=== PATIENT | female | born 1945 | race African-American/Black ===

== ENCOUNTER 2019-12-20 07:53 | Observation (INO) | payer MEDICARE, OTHER ==
--- NOTE | 2019-12-20 08:51 | RAD ---
CHEST 1 VIEW: HISTORY: Syncope, body aches, diarrhea. COMPARISON: None. FINDINGS: Heart size is normal. The lungs are clear. No confluent pneumonia, overt edema, or pleural effusion . IMPRESSION: No significant acute intrathoracic disease. No evidence for pneumonia. Atherosclerosis of the aorta . POS: [facility]
[2019-12-20 09:27] LABS: #Eosinphils 0.1 thou/uL (0.0-0.7); #Lymphocytes 1.1 thou/uL (1.20-3.40); #Monocytes 0.6 thou/uL (0.11-0.59); #Neutrophils 5.8 thou/uL (1.40-6.50); %Basophils 0.6 % (0.0-1.0); %Eosinophils 0.8 % (0.0-10.0); %Lymphocytes 14.2 % (21.0-51.0); %Monocytes 7.7 % (0.0-10.0); %Neutrophils 76.7 % (42.0-75.0); Mean Corpuscular HGB CONC 33.8 g/dL (32.0-36.0); Mean Corpuscular Hemoglobin 33.1 pg (27.0-31.0); Mean Platelet Volume 8.3 fL (7.4-10.4); Platelet Count 198 thou/uL (130-400); RBC Distribution Width 11.4 % (11.5-14.5); Red Blood Cell (RBC) Count 3.94 mill/uL (4.20-5.40); White Blood Cell (WBC) Count 7.6 thou/uL (4.8-10.8)
[2019-12-20 09:30] LABS: Bacteria/HPF None Seen HPF (None Seen); Bilirubin 1+ (Negative); Blood, Urine Negative (Negative); Clarity Clear (Clear); Glucose, Urine (Dipstick) Normal (Negative); Leukocyte 250 Leu/uL (Negative); Nitrite Negative (Negative); Protein, Urine (Dipstick) 20 mg/dL (Neg-Trace); RBC/HPF 0-3 HPF (0-3); Squamous Epithelial 0-3 HPF (0-3); Urobilinogen 3 mg/dL (Less than 2)
[2019-12-20 09:45] LABS: ALT (SGPT) 151 U/L (8-55); AST (SGOT) 164 U/L (5-34); Albumin 4.1 g/dL (3.4-4.8); Alkaline Phosphatase 199 U/L (40-110); Anion Gap 13 mmol/L (10-20); BUN (Urea Nitrogen) 16 mg/dL (9.8-20.1); Bilirubin, Total 2.1 mg/dL (0.2-1.2); Calc. Creatinine Clearance 0 mL/min (70-130); Calcium 9.9 mg/dL (7.8-10.44); Carbon Dioxide 26 mmol/L (23-31); Chloride 100 mmol/L (98-107); Estimated GFR-MDRD 51; Globulin 5.1 g/dL (2.4-3.5); Glucose 140 mg/dL (83-110); Potassium 3.7 mmol/L (3.5-5.1); Protein, Total 9.2 g/dL (6.0-8.3); Sodium 135 mmol/L (136-145)
--- NOTE | 2019-12-20 10:47 | PDOC.FPRHP ---
- History of Present Illness Chief Complaint: Syncope History of Present Illness: Pt is a 74 yo female with pmh significant for HTN, HLD, bigeminy w/ PVC's who presents for a syncopal episode this morning. She states she woke and had a loose BM. Upon standing she became warm, flushed then found herself on the ground. She did hit her head and knocked a tooth out. She is unsure how long she had been on the ground for or how long she LOC. She denies chest pain, palpitations, incontinence, tongue laceration. She was seen by her PCP last week who started her on amlodipine, statin for elevated BP's. She also had bigeminy on an EKG so PCP wanted an echo. Pt denies hepatitis, alcohol, liver disease, cardiac disease. She has never had a stent, MD, or cath. PCP: [facility] ED Course: Pt evaluated in ED and given 500mL NS bolus - Allergies/Adverse Reactions Allergies Allergy/AdvReac Type Severity Reaction Status Date / Time Sulfa (Sulfonamide Allergy Severe Verified 12/20/19 11:30 Antibiotics) - Home Medications Medication Instructions Recorded Confirmed Type Amlodipine [Norvasc] 5 mg PO DAILY 12/20/19 12/20/19 History Aspirin [Ecotrin] 81 mg PO DAILY 12/20/19 12/20/19 History Atorvastatin Calcium [Lipitor] 40 mg PO QPM 12/20/19 12/20/19 History Losartan/Hydrochlorothiazide 1 each PO DAILY 12/20/19 12/20/19 History [Losartan-Hctz 100-25 mg Tab] Magnesium Oxide [Magnesium] 400 mg PO DAILY 12/20/19 12/20/19 History Multivit-Min/Iron/Folic/Lutein 1 tablet PO DAILY 12/20/19 12/20/19 History [Centrum Silver Women] Potassium Chloride [Klor-Con 10] 10 meq PO DAILY 12/20/19 12/20/19 History - History PMHx: HTN, HLD PSHx: BTL FHx: Denies family history Social: Former tobacco use 1ppd, quit over 30 years ago, denies EtOH or drug abuse PCP: Dr. Sandra Bravo Code Status: Full - Review of Systems General: denies: fever/chills, weight/appetite/sleep changes Eyes: denies: eye pain, vision changes ENT: denies: nasal congestion, rhinorrhea Respiratory: denies: cough, shortness of breath Cardiovascular: denies: chest pain, edema Gastrointestinal: reports: diarrhea. denies: vomiting, abdominal pain Genitourinary: denies: incontinence, dysuria Skin: denies: rashes, lesions Musculoskeletal: reports: pain (chronic arm pain). denies: swelling Neurological: reports: syncope, weakness. denies: seizure Psychological: denies: anxiety, depression - Vital signs BP: 150/57, MAP: 88, Pulse: 41, Resp: 21, Pain: 0, O2 sat: 100 on (Room Air), Temp 98.4, Weight 68kg - Physical Exam Constitutional: NAD, awake, alert and oriented HEENT: PERRLA, EOMI -HEENT: L eyelid droop Neck: FROM, no LAD, no JVD Chest: no-tender to palpation, no lesions -Heart: regularly irregular, no murmurs Lungs: CTAB, no respiratory distress, no wheezing Abdomen: soft, non-tender -Abdomen: no RUQ pain, no suprapubic tenderness Musculoskeletal: normal structure, ROM grossly normal Neurological: no focal deficit, CN II-XII intact Skin: no rash/lesions, capillary refill <2 seconds, no jaundice Heme/Lymphatic: no purpura, no petechia Psychiatric: normal mood and affect, good judgment and insight FMR H&P: Results - Labs Result Diagrams: 12/20/19 09:00 12/20/19 09:00 Lab results: WBC 7.6 thou/uL (4.8-10.8) 12/20/19 09:00 Hgb 13.0 g/dL (12.0-16.0) 12/20/19 09:00 Hct 38.6 % (36.0-47.0) 12/20/19 09:00 MCV 98.0 fL (78.0-98.0) 12/20/19 09:00 Plt Count 198 thou/uL (130-400) 12/20/19 09:00 Neutrophils % 76.7 % (42.0-75.0) H 12/20/19 09:00 Sodium 135 mmol/L (136-145) L 12/20/19 09:00 Potassium 3.7 mmol/L (3.5-5.1) 12/20/19 09:00 Chloride 100 mmol/L (98-107) 12/20/19 09:00 Carbon Dioxide 26 mmol/L (23-31) 12/20/19 09:00 BUN 16 mg/dL (9.8-20.1) 12/20/19 09:00 Creatinine 1.24 mg/dL (0.6-1.1) H 12/20/19 09:00 Glucose 140 mg/dL (83-110) H 12/20/19 09:00 Calcium 9.9 mg/dL (7.8-10.44) 12/20/19 09:00 Total Bilirubin 2.1 mg/dL (0.2-1.2) H 12/20/19 09:00 AST 164 U/L (5-34) H 12/20/19 09:00 ALT 151 U/L (8-55) H 12/20/19 09:00 Alkaline Phosphatase 199 U/L (40-110) H 12/20/19 09:00 Serum Total Protein 9.2 g/dL (6.0-8.3) H 12/20/19 09:00 Albumin 4.1 g/dL (3.4-4.8) 12/20/19 09:00 Urine Ketones Negative mg/dL (Negative) 12/20/19 08:50 Urine Blood Negative (Negative) 12/20/19 08:50 Urine Nitrite Negative (Negative) 12/20/19 08:50 Ur Leukocyte Esterase 250 Shay/uL (Negative) A 12/20/19 08:50 Urine RBC 0-3 HPF (0-3) 12/20/19 08:50 Urine WBC 11-20 HPF (0-3) A 12/20/19 08:50 Ur Squamous Epith Cells 0-3 HPF (0-3) 12/20/19 08:50 Urine Bacteria None Seen HPF (None Seen) 12/20/19 08:50 - EKG Interpretation EKG: Regular rate, frequent PVC's with bigeminy - Radiology Interpretation Chest x-ray Status: image reviewed by me, report reviewed by me Additional comment: No acute changes FMR H&P: A/P - Problem List (1) Transaminitis Current Visit: Yes Status: Acute Code(s): R74.0 - NONSPEC ELEV OF LEVELS OF TRANSAMNS & LACTIC ACID DEHYDRGNSE (2) HLD (hyperlipidemia) Current Visit: Yes Status: Acute Code(s): E78.5 - HYPERLIPIDEMIA, UNSPECIFIED (3) HTN (hypertension) Current Visit: Yes Status: Acute Code(s): I10 - ESSENTIAL (PRIMARY) HYPERTENSION (4) Syncope Current Visit: Yes Status: Acute Code(s): R55 - SYNCOPE AND COLLAPSE (5) Vasovagal response Current Visit: Yes Status: Acute Code(s): R55 - SYNCOPE AND COLLAPSE (6) Bigeminal rhythm Current Visit: Yes Status: Acute Code(s): I49.9 - CARDIAC ARRHYTHMIA, UNSPECIFIED - Plan Pt is a 74 yo female with PMH significant for HLD, HTN, bigeminy w/ PVCs who presents for a syncope and transaminitis: # Syncope Vasovagal episode vs Arrhythmia vs dehydration - admit to tele - start fluids - consider holter monitor - pending echo - trend trops - orthostatics blood pressures # Transminitis - d/c statin therapy - trend CMP - Hep B/C, HIV, RPR pending # HTN - continue home meds # HLD - discontinue statin - RUQ U/S Fluids: LR 120 mls/hr VTE: SCD's Diet: HH Code: Full Dispo: Admit to tele/obs FMR H&P: Upper Level - Pertinent history 74 y/o F PMHx HTN, HLD presents to the ED due to an episode of syncope. She reports she had just woken up and went to the bathroom and was sweating and started having diarrhea. She then stood up to wash and passed out. Reports LOC. She denies hitting her head, she did knock her tooth out. Reports drinking about 2 glasses of water per day. - Pertinent findings Vitals: BP: 150/57, MAP: 88, Pulse: 41, Resp: 21, Pain: 0, O2 sat: 100 on (Room Air), Temp 98.4, Weight 68kg PE: Gen - alert, oriented, NAD HEENT - poor dentition, missing front left tooth from fall, no cuts or lip swelling CV - irregular rhythm, no murmurs Labs: Trop neg x1, Bili 2.1, AST 164, ALT 151, Alk phos 199 CXR: no acute process - Plan Date/Time: 12/20/19 1046 I, Dulce Judd MD, PGY-3, have evaluated this patient and agree with findings/ plan as outlined by international marketing coordinator resident. Pertinent changes/additions are listed here. Vasovagal Syncope Suspect vasovagal 2/2 syncope after BM. Other differential includes orthostatic hypotension and arrythmia. -Monitor on tele -Echo -LR @ 120 -Orthostatic vital signs Bigeminy Pt with EKG showing frequent PVC's in bigeminy pattern. PCP was aware. Do not think it is contributing at this time, but will monitor -Tele -Echo Transaminitis Pt denies EtOH hx, not obese, denies h/o hepatitis, denies RUQ pain -Check RUQ US -Hepatitis panel -HIV, RPR HTN -Resume home meds HLD -Hold statin at this time due to transaminitis, will monitor Dispo: Obs on tele LOS: Less than 48 hours
[2019-12-20 12:46] LABS: Troponin I Less than 0.010 ng/mL (< 0.028)
[2019-12-20] MEDS ORDERED: Ondansetron ODT 4 MG TAB SL PRN (13:23)
[2019-12-20] MEDS ORDERED: HYDROcodone/Acetaminophen 5/325 mg Tablet PO PRN ×2 (13:23)
[2019-12-20] MEDS ORDERED: Ondansetron PF 4 MG/2 ML Vial IVP PRN (13:23)
[2019-12-20] MEDS ORDERED: Sodium Chloride 0.9% 1,000 ML IV SCH (13:23)
[2019-12-20] MEDS ORDERED: Acetaminophen 325 MG TAB PO PRN (13:23)
[2019-12-20 13:36] VITALS: BMI 28.0
[2019-12-20] MEDS: Lactated Ringer's 1,000 ML IV SCH ×2 (14:53→23:31)
[2019-12-20 15:55] LABS: Troponin I Less than 0.010 ng/mL (< 0.028)
[2019-12-20 16:10] LABS: Syphilis Antibody Nonreactive (Nonreactive); Syphilis Antibody Index 0.12 S/CO (<1.00 Non-Reactive)
[2019-12-20 16:11] LABS: HBSAB Concentration 1.39 mIU/mL; HBSAg Index 0.16 S/CO (0-0.99); HIV (1/2) Antibody/Antigen Non-Reactive (NonReactive); HIV 1/2 INDEX 0.13 S/CO (<1.00); Hep B Core Total Ab Non-Reactive (NonReactive); Hep B Core Total Index 0.11 S/CO (0-0.79); Hep B Surf AB Non-Reactive (NonReactive); Hep B Surf Ag Non-Reactive S/CO (NonReactive); Hep C IgG Ab Non-Reactive (NonReactive); Hep C Index 0.26 S/CO (0-0.79)
--- NOTE | 2019-12-20 23:32 | HP ---
I have examined the patient and discussed the case with Dr. Jimmy Beauchamp, and I agree with his assessment and plan. HISTORY OF PRESENT ILLNESS: Briefly, Ms. Keyes is a 74-year-old black female with a long history of hypertension, hyperlipidemia. She also has recently developed bigeminy on her EKG. She was having a bowel movement at home this morning when she arose to sit up. She became warm flushed, and fell to the ground for several seconds. She was able to get a relative come and help her up. She presented to our ER with this syncopal episode for further evaluation. She denied any chest pain or palpitations. PHYSICAL EXAMINATION: VITAL SIGNS: Her blood pressure was 150/60, her pulse rate was 50, respirations 20, room air saturation 100%. She is afebrile. GENERAL: Now, she is awake, alert, no acute distress. EYES, EAR, NOSE, AND THROAT: No erythema or exudate. She has a left eyelid droop, which I believe is chronic. NECK: Supple. CARDIAC: Heart rhythm irregular and rhythm strip shows ventricular bigeminy. LUNGS: Clear without rales or wheezes. ABDOMEN: Soft. No guarding, rebound, or rigidity. EXTREMITIES: Trace edema. NEUROLOGIC: No focal deficits. LABORATORY DATA: CBC; white count is 7600, hemoglobin 13, hematocrit 38.6 with an MCV of 98. Chemistries; sodium 135, potassium 3.7, chloride 100, bicarb 26, BUN 16, creatinine 1.24. She does have also elevations of her transaminases. Her AST is 164, her ALT is 151. She also has an elevated bilirubin of 2.1 and an alkaline phosphatase elevation of 199. Serologies, her RPR is negative. Hep B surface antigen negative. Hep B surface antibody negative. Hep B core antibody negative. Hep C antibody negative. Her HIV is also negative. ASSESSMENT: 1. Syncope. 2. Elevated liver function tests with further testing to come. 3. Bigeminy. PLAN: Continue to evaluate LFTs with right upper quadrant ultrasound. Obtain echocardiogram. Further testing depends on initial results. Job ID: [id number]
[2019-12-21 04:47] LABS: #Eosinphils 0.1 thou/uL (0.0-0.7); #Lymphocytes 2.3 thou/uL (1.20-3.40); #Monocytes 0.8 thou/uL (0.11-0.59); #Neutrophils 2.2 thou/uL (1.40-6.50); %Basophils 0.3 % (0.0-1.0); %Eosinophils 2.2 % (0.0-10.0); %Lymphocytes 41.9 % (21.0-51.0); %Monocytes 14.6 % (0.0-10.0); Mean Corpuscular HGB CONC 33.5 g/dL (32.0-36.0); Mean Corpuscular Hemoglobin 32.9 pg (27.0-31.0); Mean Corpuscular Volume 98.4 fL (78.0-98.0); Platelet Count 164 thou/uL (130-400); RBC Distribution Width 11.5 % (11.5-14.5); Red Blood Cell (RBC) Count 3.34 mill/uL (4.20-5.40); White Blood Cell (WBC) Count 5.4 thou/uL (4.8-10.8)
[2019-12-21 05:14] LABS: ALT (SGPT) 107 U/L (8-55); AST (SGOT) 105 U/L (5-34); Albumin 3.2 g/dL (3.4-4.8); Alkaline Phosphatase 149 U/L (40-110); Anion Gap 13 mmol/L (10-20); BUN (Urea Nitrogen) 11 mg/dL (9.8-20.1); Bilirubin, Total 0.8 mg/dL (0.2-1.2); Calc. Creatinine Clearance 67 mL/min (70-130); Calcium 8.7 mg/dL (7.8-10.44); Carbon Dioxide 22 mmol/L (23-31); Chloride 104 mmol/L (98-107); Estimated GFR-MDRD 85; Glucose 106 mg/dL (83-110); Potassium 3.5 mmol/L (3.5-5.1); Protein, Total 7.2 g/dL (6.0-8.3); Sodium 135 mmol/L (136-145)
--- NOTE | 2019-12-21 06:26 | PDOC.FM ---
- Subjective Subjective: Pt is doing well without any issues. She had no syncopal episodes overnight. She feels good. RUQ u/s was wnl. - Objective Vital Signs & Weight: Vital Signs (12 hours) Temp Pulse Resp BP Pulse Ox 12/20/19 23:10 98.2 F 76 14 137/63 96 12/20/19 19:55 98.1 F 86 16 170/72 H 97 Weight Weight 67.177 kg I&O: 12/19/19 12/20/19 12/21/19 06:59 06:59 06:59 Intake Total 690 Balance 690 Result Diagrams: 12/21/19 04:34 12/21/19 04:34 EKG Reviewed by me: Yes (NSR for 4 hours then converted to bigeminy PVC's) Phys Exam - Physical Examination Constitutional: NAD HEENT: PERRLA, moist MMs Respiratory: no wheezing, clear to auscultation bilateral Regulary, irregular Gastrointestinal: soft, non-tender, positive bowel sounds Musculoskeletal: no edema, pulses present Neurological: non-focal, moves all 4 limbs Psychiatric: normal affect, A&O x 3 Skin: no rash, cap refill <2 seconds Dx/Plan (1) Transaminitis Code(s): R74.0 - NONSPEC ELEV OF LEVELS OF TRANSAMNS & LACTIC ACID DEHYDRGNSE Status: Acute (2) HLD (hyperlipidemia) Code(s): E78.5 - HYPERLIPIDEMIA, UNSPECIFIED Status: Acute (3) HTN (hypertension) Code(s): I10 - ESSENTIAL (PRIMARY) HYPERTENSION Status: Acute (4) Syncope Code(s): R55 - SYNCOPE AND COLLAPSE Status: Acute (5) Vasovagal response Code(s): R55 - SYNCOPE AND COLLAPSE Status: Acute (6) Bigeminal rhythm Code(s): I49.9 - CARDIAC ARRHYTHMIA, UNSPECIFIED Status: Acute - Plan Plan: Pt is a 74 yo female with PMH significant for HLD, HTN, bigeminy w/ PVCs who presents for a syncope and transaminitis: # Syncope Vasovagal episode vs Arrhythmia vs dehydration - admit to tele - pending echo - trop neg x 3 # Transminitis - improving - d/c statin therapy - follow up outpt - trend CMP - Hep B/C, HIV, RPR non-reactive - pending anti smooth muscle, GGT # HTN - continue home meds # HLD - discontinue statin - RUQ U/S wnl # Elevated creatinine - improving - monitor Fluids: LR 120 mls/hr VTE: SCD's Diet: HH Code: Full Dispo: Admit to tele/obs, discharge if echo WNL
[2019-12-21] MEDS: Aspirin 81 mg Enteric Coated Tablet PO SCH (08:02)
[2019-12-21] MEDS: Losartan/Hydrochlorothiazide 100 mg/25 mg Tablet PO SCH (08:02)
[2019-12-21] MEDS: Lactated Ringer's 1,000 ML IV SCH (08:02)
[2019-12-21] MEDS: Amlodipine 5 MG TAB PO SCH (08:03)
[2019-12-21] MEDS: Magnesium Oxide 400 MG TAB PO SCH (08:03)
--- NOTE | 2019-12-21 08:10 | ULT ---
RIGHT UPPER QUADRANT ULTRASOUND: HISTORY: Transaminitis. FINDINGS: The liver appears unremarkable. No focal liver masses. The gallbladder demonstrates no evidence of ga llstones, wall thickening, edema or pericholecystic fluid. The common bile duct is 0.5 cm. The visual ized pancreas and right kidney are unremarkable. IMPRESSION: Unremarkable right upper quadrant ultrasound. POS: [facility]
[2019-12-21] MEDS: Potassium Chloride 10 MEQ TAB PO SCH (10:00)
--- NOTE | 2019-12-21 18:02 | PRG ---
DATE OF SERVICE: 12/21/2019 ADDENDUM: This is an addendum to the note of Dr. Jimmy Beauchamp. Ms. Keyes is sitting in bed quietly, in no distress. We are awaiting the results of her echocardiogram. Her gallbladder ultrasound done this morning was normal. She does have unexplained elevations of her liver enzymes, which I do not believe are related to her use of a statin. Her hepatitis screens are all negative. Again, her right upper quadrant ultrasound does not show any etiology for elevated LFTs. I would suggest some autoimmune studies to include an antismooth muscle antibody, and probable further workup as an outpatient. Job ID: [id number]
[2019-12-22 05:04] LABS: #Eosinphils 0.2 thou/uL (0.0-0.7); #Lymphocytes 2.2 thou/uL (1.20-3.40); #Monocytes 0.8 thou/uL (0.11-0.59); #Neutrophils 2.8 thou/uL (1.40-6.50); %Basophils 0.3 % (0.0-1.0); %Eosinophils 3.1 % (0.0-10.0); %Lymphocytes 36.4 % (21.0-51.0); %Monocytes 13.6 % (0.0-10.0); %Neutrophils 46.6 % (42.0-75.0); Hemoglobin 11.3 g/dL (12.0-16.0); Mean Corpuscular HGB CONC 33.2 g/dL (32.0-36.0); Mean Corpuscular Hemoglobin 32.8 pg (27.0-31.0); Mean Corpuscular Volume 98.9 fL (78.0-98.0); Mean Platelet Volume 8.4 fL (7.4-10.4); Platelet Count 185 thou/uL (130-400); RBC Distribution Width 11.5 % (11.5-14.5); Red Blood Cell (RBC) Count 3.46 mill/uL (4.20-5.40); White Blood Cell (WBC) Count 5.9 thou/uL (4.8-10.8)
[2019-12-22 05:27] LABS: ALT (SGPT) 96 U/L (8-55); AST (SGOT) 80 U/L (5-34); Albumin 3.3 g/dL (3.4-4.8); Alkaline Phosphatase 167 U/L (40-110); Anion Gap 13 mmol/L (10-20); BUN (Urea Nitrogen) 12 mg/dL (9.8-20.1); Bilirubin, Total 0.6 mg/dL (0.2-1.2); Calc. Creatinine Clearance 65 mL/min (70-130); Calcium 9.1 mg/dL (7.8-10.44); Carbon Dioxide 26 mmol/L (23-31); Chloride 102 mmol/L (98-107); Estimated GFR-MDRD 82; Globulin 4.4 g/dL (2.4-3.5); Glucose 100 mg/dL (83-110); Potassium 3.5 mmol/L (3.5-5.1); Protein, Total 7.7 g/dL (6.0-8.3); Sodium 137 mmol/L (136-145)
--- NOTE | 2019-12-22 06:09 | PDOC.FM ---
- Subjective Subjective: pt is feeling well this morning. Says she is hungry. Denies feeling lightheaded. No pain. - Objective MAR Reviewed: Yes Vital Signs & Weight: Vital Signs (12 hours) Temp Pulse Resp BP Pulse Ox 12/21/19 23:45 98.1 F 68 15 145/69 H 99 12/21/19 19:40 98.1 F 80 16 131/63 98 Weight Weight 67.495 kg I&O: 12/20/19 12/21/19 12/22/19 06:59 06:59 06:59 Intake Total 2305 1420 Output Total 750 1450 Balance 1555 -30 Result Diagrams: 12/22/19 04:26 12/22/19 04:26 Phys Exam - Physical Examination Constitutional: NAD Respiratory: no wheezing, clear to auscultation bilateral Cardiovascular: RRR (1/6 murmur) Gastrointestinal: soft, non-tender, no distention Musculoskeletal: no edema Psychiatric: normal affect, A&O x 3 Dx/Plan (1) Bigeminal rhythm Code(s): I49.9 - CARDIAC ARRHYTHMIA, UNSPECIFIED Status: Acute (2) HLD (hyperlipidemia) Code(s): E78.5 - HYPERLIPIDEMIA, UNSPECIFIED Status: Acute (3) HTN (hypertension) Code(s): I10 - ESSENTIAL (PRIMARY) HYPERTENSION Status: Acute (4) Syncope Code(s): R55 - SYNCOPE AND COLLAPSE Status: Acute (5) Transaminitis Code(s): R74.0 - NONSPEC ELEV OF LEVELS OF TRANSAMNS & LACTIC ACID DEHYDRGNSE Status: Acute (6) Vasovagal response Code(s): R55 - SYNCOPE AND COLLAPSE Status: Acute - Plan Plan: Pt is a 74 yo female with PMH significant for HLD, HTN, bigeminy w/ PVCs who presents for a syncope and transaminitis: # Syncope Vasovagal episode vs Arrhythmia vs dehydration - likely vasovagal - overnight tele: bigeminal PVCs - ECHO: EF 45-50, mild increase in LV size and mild LA dilation. Mild-mod MR and AR. - trop neg x 3 # Transminitis - improving - d/c statin therapy - follow up outpt - GGT elevated. - trend CMP - Hep B/C, HIV, RPR non-reactive - pending anti smooth muscle - RUQ u/s neg # HTN - continue home meds # HLD - discontinue statin - RUQ U/S wnl # Elevated creatinine - improving - monitor Fluids: LR 120 mls/hr VTE: SCD's Diet: HH Code: Full Dispo: Admit to tele/obs, likely d/c day. Addendum - Attending - Attending Attestation Date/Time: 12/22/19 2243 I personally evaluated the patient and discussed the management with Dr. Gan I agree with the History, Examination, Assessment and Plan documented above with any addition or exceptions noted below. Patient admitted with syncopal episode showing asymptomatic bigeminy PVCs on monitor. Patient with elevated LFTs under evaluation possible Statin drug related appear improved s/p d/c atorvastatin. Will consult with Cardiology regard any further consideration of cardiac related syncope in light of PVCs. electrolytes and Magnesium ok. Echocardiogram completed as reported above.
[2019-12-22] MEDS: Aspirin 81 mg Enteric Coated Tablet PO SCH (08:33)
[2019-12-22] MEDS: Losartan/Hydrochlorothiazide 100 mg/25 mg Tablet PO SCH (08:33)
[2019-12-22] MEDS: Magnesium Oxide 400 MG TAB PO SCH (08:34)
[2019-12-22] MEDS: Amlodipine 5 MG TAB PO SCH (08:34)
[2019-12-22] MEDS: Potassium Chloride 10 MEQ TAB PO SCH (08:34)
[2019-12-22 13:12] LABS: Prothrombin Time 13.3 SEC (12.0-14.7)
--- NOTE | 2019-12-23 00:49 | CON ---
DATE OF CONSULTATION: HISTORY: May Keyes is a 74-year-old black female, admitted for an episode of syncope. She has longstanding history of hypertension and recently saw her primary doctor. She was found to have blood pressure somewhat poorly controlled and was in ventricular bigeminy. Amlodipine 5 mg was added to losartan/hydrochlorothiazide 100/25. On December 20, she had somewhat watery loose bowel movement and stood up and noticed that she was falling to the ground. However, she states she does not remember hitting the floor. She knocked a tooth out. She was brought to the emergency room for further evaluation. She denies any shortness of breath or chest discomfort. She denies any abdominal pain. PAST MEDICAL HISTORY: Hypertension and hypercholesterolemia. MEDICATIONS: 1. Atorvastatin 40 daily. 2. Amlodipine 5 mg daily. 3. Aspirin 81 daily. 4. Losartan/hydrochlorothiazide 100/25 q.a.m. 5. Magnesium oxide 400 daily. 6. Potassium 10 mEq daily. ALLERGIES: SULFA. OPERATIONS: Tubal ligation. SOCIAL HISTORY: She smoked one pack per day. Stopped 30 years ago. She does not drink. FAMILY HISTORY: Unremarkable. REVIEW OF SYSTEMS: Unremarkable except as noted above. PHYSICAL EXAMINATION: VITAL SIGNS: Blood pressure 135/60, pulse of 92. HEENT: PERRL. NECK: Supple. CHEST: Clear. CARDIAC: S1 and S2 normal without any S3, S4, or murmurs. ABDOMEN: Normal bowel sounds without tenderness or organomegaly. Carotid upstrokes normal without bruits. EXTREMITIES: Revealed no clubbing, cyanosis, or edema. NEUROLOGIC: Grossly intact. SKIN: Warm and dry. LABORATORY DATA: EKG revealed normal sinus rhythm with ventricular bigeminy. Echocardiogram revealed mild left ventricular dysfunction with ejection fraction of 45% to 50%, mild left ventricular enlargement, mild left atrial enlargement, wrwn-ax-tzwldyma mitral regurgitation, svgj-[id number]-rnynedqj aortic regurgitation, mild tricuspid regurgitation. Hemoglobin 11.3, hematocrit 34.2, white count 5900, and platelets 185,000. INR 1.0. Sodium 137, potassium 3.5, chloride 107, carbon dioxide 26, BUN 12, creatinine 0.83. It is of note that AST was 105, ALT 107, and alkaline phosphatase 149. GGT 469. Abdominal ultrasound revealed no evidence of cholelithiasis. IMPRESSION: 1. Syncopal episode. This certainly could have been due to vasovagal response after somewhat watery bowel movement, orthostasis, arrhythmia, etc. 2. Ventricular bigeminy which apparently was first noted within the last week. 3. Hypertension. 4. Mild left ventricular dysfunction with mild left ventricular enlargement. 5. Hypercholesterolemia. RECOMMENDATIONS: With ventricular bigeminy, she will undergo Lexiscan Cardiolite testing to rule out ischemia as a cause of her frequent PVCs. Lipid profile will be obtained. With her mild left ventricular dysfunction and ventricular bigeminy, I would discontinue the amlodipine and instead have her start on carvedilol 6.25 b.i.d. If no significant arrhythmias are found, consideration can be given to discharging her with a 30-day monitor. Job ID: [id number] [facility]ITALZaria
[2019-12-23 04:52] LABS: #Eosinphils 0.1 thou/uL (0.0-0.7); #Lymphocytes 2.9 thou/uL (1.20-3.40); #Monocytes 0.8 thou/uL (0.11-0.59); #Neutrophils 2.9 thou/uL (1.40-6.50); %Basophils 0.4 % (0.0-1.0); %Eosinophils 2.1 % (0.0-10.0); %Lymphocytes 42.8 % (21.0-51.0); %Monocytes 11.2 % (0.0-10.0); %Neutrophils 43.4 % (42.0-75.0); Hemoglobin 12.3 g/dL (12.0-16.0); Mean Corpuscular HGB CONC 31.8 g/dL (32.0-36.0); Mean Corpuscular Hemoglobin 31.3 pg (27.0-31.0); Mean Corpuscular Volume 98.4 fL (78.0-98.0); Mean Platelet Volume 8.7 fL (7.4-10.4); Platelet Count 181 thou/uL (130-400); RBC Distribution Width 11.5 % (11.5-14.5); Red Blood Cell (RBC) Count 3.93 mill/uL (4.20-5.40); White Blood Cell (WBC) Count 6.8 thou/uL (4.8-10.8)
[2019-12-23 05:14] LABS: ALT (SGPT) 76 U/L (8-55); AST (SGOT) 58 U/L (5-34); Albumin 3.4 g/dL (3.4-4.8); Alkaline Phosphatase 173 U/L (40-110); Anion Gap 12 mmol/L (10-20); BUN (Urea Nitrogen) 16 mg/dL (9.8-20.1); Bilirubin, Total 0.5 mg/dL (0.2-1.2); Calc. Creatinine Clearance 57 mL/min (70-130); Calcium 9.2 mg/dL (7.8-10.44); Carbon Dioxide 24 mmol/L (23-31); Cardiac Risk 2.9 (Less than 4.5); Chloride 99 mmol/L (98-107); Cholesterol 174 mg/dl (< 200 Desired); Estimated GFR-MDRD 72; Globulin 4.6 g/dL (2.4-3.5); Glucose 103 mg/dL (83-110); HDL Cholesterol 61 mg/dL (>60 Neg Risk); LDL Cholesterol, Calculated 101 mg/dL; Potassium 3.4 mmol/L (3.5-5.1); Sodium 132 mmol/L (136-145); Triglycerides 61 mg/dL (Less than 150)
--- NOTE | 2019-12-23 05:59 | PDOC.FM ---
- Subjective Subjective: Pt is feeling well this AM. Denies chest pain, SOB. She does not have questions w/ regards to her stress test. Overnight tele showed frequent PVCs ~30 per min and bigeminal PVCs. - Objective MAR Reviewed: Yes Vital Signs & Weight: Vital Signs (12 hours) Temp Pulse Resp BP Pulse Ox 12/23/19 03:18 98.1 F 84 17 149/83 H 98 12/22/19 23:25 98.9 F 88 15 146/68 H 98 12/22/19 19:21 99.2 F 83 16 133/62 97 Weight Weight 66.497 kg I&O: 12/21/19 12/22/19 12/23/19 06:59 06:59 06:59 Intake Total 2305 1710 1200 Output Total 750 2050 1300 Balance 1555 -340 -100 Result Diagrams: 12/23/19 04:31 12/23/19 04:31 Phys Exam - Physical Examination Constitutional: NAD L eyelid ptosis, baseline Respiratory: no wheezing, clear to auscultation bilateral Cardiovascular: RRR, no significant murmur Gastrointestinal: soft Psychiatric: normal affect, A&O x 3 Dx/Plan (1) Bigeminal rhythm Code(s): I49.9 - CARDIAC ARRHYTHMIA, UNSPECIFIED Status: Acute (2) HLD (hyperlipidemia) Code(s): E78.5 - HYPERLIPIDEMIA, UNSPECIFIED Status: Acute (3) HTN (hypertension) Code(s): I10 - ESSENTIAL (PRIMARY) HYPERTENSION Status: Acute (4) Syncope Code(s): R55 - SYNCOPE AND COLLAPSE Status: Acute (5) Transaminitis Code(s): R74.0 - NONSPEC ELEV OF LEVELS OF TRANSAMNS & LACTIC ACID DEHYDRGNSE Status: Acute (6) Vasovagal response Code(s): R55 - SYNCOPE AND COLLAPSE Status: Acute - Plan Plan: Pt is a 74 yo female with PMH significant for HLD, HTN, bigeminy w/ PVCs who presents for a syncope and transaminitis: # Syncope # Bigeminal PVCs, frequent PVCs Vasovagal episode vs Arrhythmia vs dehydration - likely vasovagal, must work up PVCs - overnight tele: bigeminal PVCs, frequent PVCs - ECHO: EF 45-50, mild increase in LV size and mild LA dilation. Mild-mod MR and AR. - trop neg x 3 - Cards consulted, appreciate recs. Amlodipine discontinued, started carvedilol. Held carvedilol for stress test. Will undergo cardiolite stress test today to rule out ischemia as cause of PVCs. May have diet after stress test. # Transminitis - improving # Hypomagnesemia # Hypokalemia - d/c statin therapy - follow up outpt - GGT elevated. - trend CMP. Replete prn. - Hep B/C, HIV, RPR non-reactive - pending anti smooth muscle - RUQ u/s neg # HTN - continue home meds. See above for cardiology recs. # HLD - discontinue statin - RUQ U/S wnl - repeat FLP wnl # Elevated creatinine - resolved - monitor Fluids: SL VTE: SCD's Diet: HH Code: Full Dispo: pending stress test. Addendum - Attending - Attending Attestation Date/Time: 12/23/19 9714 I personally evaluated the patient and discussed the management with Dr. Gan I agree with the History, Examination, Assessment and Plan documented above with any addition or exceptions noted below. Patient for stress testing this AM BP rx changes noted d/c CCB and started coreg yesterday appreciate Cardiology recommendations.
[2019-12-23 06:37] LABS: Magnesium 1.4 mg/dL (1.6-2.6)
[2019-12-23] MEDS ORDERED: Carvedilol 6.25 MG TAB PO SCH (08:00)
[2019-12-23] MEDS ORDERED: Magnesium 2 GM/50 ML 2 GM in Premix Bag 1 BAG IVPB SCH (08:15)
[2019-12-23] MEDS ORDERED: Potassium Chloride 10 MEQ in Premix Bag 1 BAG IVPB SCH (08:30)
[2019-12-23] MEDS ORDERED: Regadenoson 0.4 MG/5 ML SYRINGE ONE (10:53)
[2019-12-23] MEDS: Losartan/Hydrochlorothiazide 100 mg/25 mg Tablet PO SCH (11:25)
[2019-12-23] MEDS: Aspirin 81 mg Enteric Coated Tablet PO SCH (11:25)
[2019-12-23] MEDS: Potassium Chloride 10 MEQ TAB PO SCH (11:25)
[2019-12-23] MEDS: Magnesium Oxide 400 MG TAB PO SCH (11:25)
--- NOTE | 2019-12-23 11:41 | NM ---
Radionucleotide stress and rest myocardial perfusion scan with CT attenuation correction and SPECT im aging Left ventricular wall motion evaluation and ejection fraction HISTORY: Chest pain. Syncope. PVC. FINDINGS: Heterogeneous uptake of radiotracer throughout the left ventricular myocardium. Lexiscan pr otocol. No focal perfusion defect or reversibility. QGS analysis of gated SPECT images shows no focal wall motion abnormalities. Left ventricular ejectio n fraction calculated at 62%. IMPRESSION: No evidence of ischemia. Normal LVEF.
[2019-12-23 12:02] VITALS: TEMP 98.6
[2019-12-23 13:19] VITALS: BP 132/80
--- NOTE | 2019-12-31 09:38 | STRESS ---
Acquisition Time: 2019-12-23 09:37:02 Total Exercise Time: 00:01:00 Test Indications: Syncope Medications: Protocol: LEXISCAN Max HR: 130 BPM 87% of Pred: 148 BPM Max BP: 188/072 mmHG Max Work Load: 1.0 METS RESTING ECG: NORMAL SINUS RHYTHM AT 93 BPM WITH FREQUENT PVC'S (TRIGEMINY) SYMPTOMS: NONE NORMAL BP RESPONSE ECTOPY: FREQUENT PVC'S ECG STRESS: NO SIGNIFICANT CHANGES INTERPRETATION: INDETERMINATE ECG/AWAIT NUCLEAR IMAGES FOR DEFINITIVE DIAGNOSIS Confirmed by ANIA JENKINS ELLEN ([id number]) on 12/31/2019 9:37:51 AM Referred By: MD Remy CORADO Confirmed By:LYDIA JENKINS PA-C
== END 2019-12-23 17:15 | disposition home or self-care (01) ==
LOC: ERS 07:53 → 2SW 13:28
PROVIDERS: ADMIT Family Medicine; ATTEND Family Medicine
DX: R55 Syncope and collapse (principal); R79.89 Other specified abnormal findings of blood chemistry; R00.8 Other abnormalities of heart beat; I10 Essential (primary) hypertension; E78.5 Hyperlipidemia, unspecified; R74.0 Nonspecific elevation of levels of transaminase and lactic acid dehydrogenase [LDH]; E83.42 Hypomagnesemia; E87.6 Hypokalemia; Z79.82 Long term (current) use of aspirin; Z79.899 Other long term (current) drug therapy; Z88.2 Allergy status to sulfonamides; Z87.891 Personal history of nicotine dependence
CPT/HCPCS: 71045; 76705; 78452; 80053 ×4; 80061; 82977 ×2; 83516; 83735; 84484 ×2; 85025 ×4; 85610; 86704; 86706; 86708; 86780; 86803; 87086; 87340; 87389; 93005; 93017; 93306; 96361 ×2; 96365; 97139 ×3; 99285; A9500; G0378 ×5; 36415; 81003; 81015; J2785; J3475

== ENCOUNTER 2019-12-26 09:26 | Day surgery (SDC) | payer MEDICARE ==
[2019-12-25 16:58] VITALS: BMI 29.0
[~2019-12-26 09:26] MED LIST: Iopamidol 370 76% 50 ML VIAL FS ONE
[2019-12-26] MEDS ORDERED: Gentamicin 80 MG/2 ML VIAL ONE (12:09)
[2019-12-26] MEDS ORDERED: CEFAZOLIN 1 GM VIAL ONE (12:09)
[2019-12-26] MEDS ORDERED: Fentanyl 100 MCG/2 ML VIAL ONE (12:57)
[2019-12-26] MEDS ORDERED: Midazolam HCl 2 mg/2 ml Vial ONE (12:57)
[2019-12-26] MEDS ORDERED: Lidocaine 1% (PF) 30 ML VIAL ONE (13:07)
--- NOTE | 2019-12-26 15:05 | RAD ---
Portable chest: HISTORY: Pacemaker placement COMPARISON: 12/20/2019 FINDINGS: Lung herrmann are clear. Heart and mediastinum appear unremarkable. No evidence of pneumothor ax. Vascularity is normal. Visualized osseous structures unremarkable. Dual-lead transvenous pacemaker device appears adequately positioned. IMPRESSION: No acute finding
[2019-12-26] MEDS ORDERED: Acetaminophen/Codeine 30-300mg Tablet ONE (15:55)
--- NOTE | 2019-12-27 19:06 | CCL ---
PERMANENT PACEMAKER INSERTION USING FLUOROSCOPY: 12/26/19 INDICATION: History of syncope and 5.6 second pause. PROCEDURE: Dual chamber pacemaker placement. DESCRIPTION OF PROCEDURE: The patient was brought to the [facility] and the left subclavian area was prepped and draped. A subclavian venogram was performed using 50/50 mix of contrast with saline. There was normal anatomy. 1% Lidocaine was infiltrated. The patient was given versed 1 mg IV and fentanyl 25 mg IV for one hour moderate conscious sedation with appropriate monitoring. A J-wire was placed into the left subclavian vein. Pacemaker pocket was manufactured using blunt and sharp dissection with electrocautery for hemostasis. An antibiotic solution soaked 4x4 gauze was placed in the pocket. A second J-wire was then placed into subclavian vein. Using 7-Vietnamese peel away sheaths the atrial and ventricular leads were inserted. The right ventricular lead was screwed in to RV apex. The atrial lead was screwed into the right atrium. Right ventricular lead - R-wave 8.7, impedance 826, threshold 0.5 volts. For the right atrial lead, the P-wave 2.6, impedance 699, threshold 0.6 volts. With pacing of both leads at 10 volts, there was no muscle or diaphragmatic stimulation. The tabs on the suture tie-downs were removed. Both leads were secured in place with two sutures of 0 silk. The gauze in the pacemaker pocket was removed and the area was irrigated with copious amounts of antibiotic solution. The leads were attached to the pacemaker generator and this was secured in place with one suture of 0 silk. The incision was then closed using two layers of 3-0 Vicryl, one layer of 4-0 Vicryl. Dermabond was placed on the incision. The patient tolerated the procedure well. DARRION
== END 2019-12-26 17:08 | disposition home or self-care (01) ==
LOC: CCL 09:26
PROVIDERS: ATTEND Internal Medicine Cardiovascular Disease
PROC: 0JH607Z Insertion of Cardiac Resynchronization Pacemaker Pulse Generator into Chest Subcutaneous Tissue and Fascia, Open Approach (ICD-10-PCS; principal; 2019-12-26)
PROC: 02H63JZ Insertion of Pacemaker Lead into Right Atrium, Percutaneous Approach (ICD-10-PCS; 2019-12-26)
PROC: 02HK3JZ Insertion of Pacemaker Lead into Right Ventricle, Percutaneous Approach (ICD-10-PCS; 2019-12-26)
DX: I49.5 Sick sinus syndrome (principal); R55 Syncope and collapse; I10 Essential (primary) hypertension; E78.00 Pure hypercholesterolemia, unspecified; I49.3 Ventricular premature depolarization; Z87.891 Personal history of nicotine dependence; Z79.82 Long term (current) use of aspirin; Z79.899 Other long term (current) drug therapy; Z88.2 Allergy status to sulfonamides
CPT/HCPCS: 33208; 36005; 71045; 75820; 93005; 99152; 99153; C1785; C1898; J0690; J1580; J2001; J2250; J3010; Q9967